=== PATIENT | female | born 1965 | race Caucasian/White ===

== ENCOUNTER → 2020-10-17 | Outpatient (CLI) | payer BC ==
--- NOTE | 2020-10-19 09:24 | SLEEP ---
DATE OF STUDY: 10/17/2020 SLEEP STUDY REFERRING PHYSICIAN: Dr. Harsha Stephen. The patient is a 55-year-old who weighs 150 pounds with a BMI of 27. The patient's Marshall score was 14. The patient had a history of sleep apnea and needs a new CPAP machine evaluation. The patient has lost 70 pounds since last sleep study. During the night study, the patient spent 417 minutes in bed and slept for 342 minutes with a sleep efficiency of 82%. Sleep latency was 17 minutes with a REM latency of 253 minutes. Sleep architecture showed normal stage 1 and stage 2 sleep, normal slow wave and normal REM sleep. During the initial diagnostic portion of the study, the patient slept for 115 minutes. During that time, there were no mixed apneas, 8 obstructive apneas, 6 central apneas and 50 hypopneas. The patient's AHI was 33 per hour, supine AHI of 61 per hour. REM sleep was not seen during the diagnostic portion. Nocturnal oximetry study revealed a mean oxygen saturation of 96% with lowest of 80%. Eight minutes were spent with oxygen saturation between 80% and 89%. EKG monitoring revealed normal sinus rhythm, average heart rate 86 beats per minute, no arrhythmias observed. PLMS were seen at index of 28 per hour and 3 per hour caused EEG arousals. The patient was started on CPAP at 5 cm water and titrated up to 7 cm water. At the final pressure, the patient had supine as well as REM sleep. The patient slept for 205 minutes. The patient's AHI was reduced to 2 per hour. Oxygen saturation remained above 92%. IMPRESSION: 1. Severe obstructive sleep apnea at an apnea hypopnea index of 33 per hour. 2. Nocturnal hypoxia secondary to obstructive sleep apnea, but resolved with CPAP. 3. Moderate periodic limb movements. RECOMMENDATIONS: 1. CPAP at 7 cm water completely eliminated the patient's sleep apnea and should be used on a nightly basis. 2. Follow up in 4-6 weeks to assess compliance with CPAP and to document clinical improvement. 3. Weight loss to the ideal body weight is recommended. 4. Avoid [employer] depressants. 5. Cautioned regarding driving until symptoms of sleep apnea resolve with the use of CPAP. 6. The patient should also be further evaluated for symptoms of restless legs during the day. EH SAUCEDO MD DR: SONI/alcides JOB#: [id number] / [id number]
== END ==
LOC: RT 19:18
PROVIDERS: ATTEND Internal Medicine Critical Care Medicine
DX: G47.33 Obstructive sleep apnea (adult) (pediatric) (principal); G47.34 Idiopathic sleep related nonobstructive alveolar hypoventilation; G47.61 Periodic limb movement disorder
CPT/HCPCS: 95810